=== PATIENT | female | born 1990 | race Caucasian/White ===

== ENCOUNTER 2016-10-06 21:58 | Outpatient (CLI) | payer MEDICAID ==
[~2016-10-06] VITALS: Ht 156.2 cm; Wt 64.1 kg
[2016-10-06 23:15] VITALS: BP 98/62; PULSE 93; RESP 20
[2016-10-06] MEDS ORDERED: PRENAT PO (23:19)
--- NOTE | 2016-10-06 23:25 | QN ---
Documentation Comment Laborist ER panel pt 26 y.o. G1 with an IUP at 23w 1d c/o left back pain x 3 days. She ranks it 7/10 on a pain scale. Denies hardening of the belly. No bleeding or leaking of fluid. No dysuria. No fever, chills, nausea, vomiting. Pt denies lifting anything heavy or any other activity that would aggravate a back. PMHx: none. PSHx:none. NKDA. BP= 98/62. T= 98.9. No CVAT tenderness either side but lower down on the left side the strap muscle next to the spine is distinctly harder and a source of pain for the pt compared to the right side. NST: baseline 140 bpm with accels to 150 bpm (appropriate for 23 weeks). Some UC 's noted, mild. A: IUP 23w 1d with left back muscle spasm. Plan: P.O. hydration. [place] 5 mg x 1. U/A. Hot pack to back. Cervical length. If all OK, and the patient feels better, may d/c home. REJI HERNÁNDEZ MD Oct 06, 2016 23:25
[2016-10-06] MEDS ORDERED: HYDROCODONE/APAP (5/325) TAB PO ONE (23:30)
--- NOTE | 2016-10-07 00:16 | RADRPT ---
PROCEDURE: US OB cervical length. CLINICAL INDICATION: labor TECHNIQUE: Multiple sonographic images of the pelvis were obtained. The images were reviewed on a PACS workstation. COMPARISON: No pertinent prior examinations were submitted for comparison. FINDINGS: The cervix is closed with a length of 3.6 cm. There is a single live intrauterine gestation. Cardiac activity is present with 137 beats per minut e. There is a vertex presentation. This examination was not performed for anatomy. The placenta is posterior, grade 1 in appearance. There is no evidence for an abruption or placenta previa. IMPRESSION: Cervical length 3.6 cm. RPTAT: HIKT .Navin Brown MD, MD Date Time Electronically viewed and signed by .Navin Brown MD, MD on 10/07/2016 00:16 .T/
[2016-10-07 01:13] LABS: ADD UMIC YES; URINE BILIRUBIN (Dip) NEGATIVE (NEGATIVE); URINE BLOOD (Dip) 2+ (NEGATIVE); URINE COLOR LT. YELLOW (YELLOW); URINE GLUCOSE (Dip) NEGATIVE (NEGATIVE); URINE KETONES (Dip) NEGATIVE (NEGATIVE); URINE LEUKOCYTE ESTERASE (Dip) 1+ (NEGATIVE); URINE NITRITE (Dip) NEGATIVE (NEGATIVE); URINE TOTAL PROTEIN (Dip) NEGATIVE (NEGATIVE); URINE UROBILINOGEN (Dip) 0.2 E.U./dL (0.1-1.0)
[2016-10-07 01:34] LABS: BACTERIA,URINE MANY; SQUAMOUS EPITHELIAL CELL,UR MANY
--- NOTE | 2016-10-07 02:54 | TRIAGE ---
OB Triage Datetime Report Generated by CPN: 10/07/2016 02:54 Datetime: 10/06/2016 23:10 Stage of : OB Triage Monitor Mode: External Duration (sec)2399: 20-40sec Quality: Mild Pattern: Normal: <= 5 Contractions in 10 Minutes Resting Tone [place]: Relaxed Heart Rate FHR Baseline Rate: 140 Monitor Mode: External US FHR Baseline Changes: No Baseline Change Variability: Moderate 6-25 bpm Accelerations: 10X10 Pain Assessment Pain Scale: 7 Pain Presence: Constant Pain Type: Stabbing; Ache Pain Location: Back Pain Assessment Comments: left side Datetime: 10/06/2016 22:30 Stage of : OB Triage Heart Rate FHR Baseline Rate: 140 Monitor Mode: External US Variability: Moderate 6-25 bpm Accelerations: 10X10 Datetime: 10/06/2016 22:17 Time of Arrival: 10/06/2016 21:52 EGA: 23.1 Arrived By: Wheelchair Arrived From: Home Chief Complaint: w/ c/o lt side pain x 2 hrs. Denies hx problems this Movement: Present Contractions: Denies/Absent Rupture of Membranes: Denies Vaginal Bleeding: None Vaginal Discharge: Denies Recent Sexual Intercouse: Denies Abdominal Trauma: Not Applicable Patient Complaints: Back Pain Time Provider Notified: 10/06/2016 22:30 Provider Notified: Dr Mathis Initial Plan: EFM, UA,CVL, PO HYDRATION Datetime: 10/06/2016 22:10 Vaginal Exam Membrane Status: Intact Datetime: 10/06/2016 22:09 Stage of : OB Triage Maternal Assessment Level of Consciousness: Fully Conscious Headache: Denies Blurred Vision: No Nausea/Vomiting: Denies RUQ Epigastric Pain: Denies Facial Edema: None Labor Evaluation Frequency: placed Monitor Mode: External Monitor Mode: External US Comments: FHT 150 Pain Assessment Pain Scale: 7 Pain Presence: Constant Pain Type: Stabbing; Ache Pain Location: Back
== END 2016-10-07 02:38 | disposition home or self-care (01) ==
LOC: OBT 21:58 → L-D 22:01 → OBT 10-07 02:38
PROVIDERS: ATTEND Obstetrics & Gynecology
DX: O99.89 Other specified diseases and conditions complicating pregnancy, childbirth and the puerperium (principal); M62.830 Muscle spasm of back; O60.02 Preterm labor without delivery, second trimester; Z3A.23 23 weeks gestation of pregnancy
CPT/HCPCS: 76817; 81001; 81003; Z7500; Z7610; G0463

== ENCOUNTER 2016-12-31 09:47 | Outpatient (CLI) | payer MEDICAID ==
[~2016-12-31 09:47] MED LIST: PRENAT PO
--- NOTE | 2016-12-31 10:51 | RADRPT ---
PROCEDURE: US OB. CLINICAL INDICATION: Decrease movement TECHNIQUE: Pelvic ultrasound performed for biophysical profile. COMPARISON: 12/28/2016 ultrasound and 10/06/2016 ultrasound FINDINGS: Single intrauterine gestation present with heart rate at 08/1933 beats per minute. Presentation is cephalic. Placenta is left lateral, grade 1-2. Biophysical profile score is 8/8 (breathing=2, move ment=2, tone =2, fluid volume=2). Amniotic fluid volume is within normal limits, with WAI = 8.1 cm. IMPRESSION: Live intrauterine gestation in cephalic presentation. Biophysical profile score 8/8. WAI of 8.1 cm. .Lay Mendez MD, Date Time Electronically viewed and signed by .Lay Mendez MD, on 12/31/2016 10:50 .M/
[2016-12-31] MEDS: LACTATED RINGER'S 1,000 ML IV SCH ×2 (12:28→17:35)
[2016-12-31] MEDS ORDERED: TERBUTALINE 1 MG/ML INJ SC ONE ×2 (12:30→15:30)
[2016-12-31] MEDS ORDERED: BETAMET NA PHOS/AC(6 MG/ML) 5ML INJ IM ONE (17:30)
--- NOTE | 2016-12-31 17:52 | QN ---
Documentation Comment 26 y/o female P0 at 34 + weeks here C/O decreased FM since 4 hours prior to admission PMH and PSh asa well as PNC are unremarkable On EFM U/C een Q 4-5 minutes : Cervix is closed. After 2 X SQ injection of Terbutaline U/Cs subsided. Patient was started on PO Nifedipine: Will continue until 37 weeks Steroids given: will repeat the dose next day NST is reactive and BPP is 8/8 Placed patient on bed rest and pelvic rest and follow outpatient YOKO VALENCIA MD December 31, 2016 17:52
[2016-12-31] MEDS ORDERED: NIFEdipine 10 MG CAP PO ONE (18:00)
[2016-12-31] MEDS ORDERED: NIFE10CA19 PO (19:48)
--- NOTE | 2016-12-31 20:07 | TRIAGE ---
OB Triage Datetime Report Generated by CPN: 12/31/2016 20:06 Datetime: 12/31/2016 18:30 Stage of : OB Triage Labor Evaluation Frequency: 0 Monitor Mode: External Resting Tone [place]: Relaxed Heart Rate FHR Baseline Rate: 135 Monitor Mode: External US Variability: Moderate 6-25 bpm Accelerations: 15X15 Decelerations: None Category: Category I Pain Assessment Pain Scale: 0 Pain Presence: None/Denies Pain Type: N/A Pain Goal: 3 Pain Relief Measures: Comfort Measures Datetime: 12/31/2016 17:42 Stage of : Antepartum Datetime: 12/31/2016 16:08 Labor Evaluation Frequency: 3-8 Monitor Mode: External Duration (sec)2399: 30-60 Quality: Mild Pattern: Normal: <= 5 Contractions in 10 Minutes Resting Tone [place]: Relaxed Contraction Comments: DENIES FEELING Heart Rate FHR Baseline Rate: 135 Monitor Mode: External US Variability: Moderate 6-25 bpm Accelerations: 10X10 Decelerations: None Category: Category I Pain Assessment Pain Scale: 0 Pain Presence: None/Denies Pain Type: N/A Pain Goal: 3 Pain Relief Measures: Comfort Measures Datetime: 12/31/2016 15:20 Stage of : OB Triage Datetime: 12/31/2016 15:08 Labor Evaluation Frequency: 3-5 Monitor Mode: External Duration (sec)2399: 20-30 Pattern: Normal: <= 5 Contractions in 10 Minutes Resting Tone [place]: Relaxed Heart Rate FHR Baseline Rate: 135 Monitor Mode: External US Variability: Moderate 6-25 bpm Accelerations: None Decelerations: None Category: Category II Pain Assessment Pain Scale: 0 Pain Presence: None/Denies Pain Type: N/A Pain Goal: 3 Pain Relief Measures: Comfort Measures Datetime: 12/31/2016 13:15 Labor Evaluation Frequency: 0 Monitor Mode: External Resting Tone [place]: Relaxed Heart Rate FHR Baseline Rate: 135 Monitor Mode: External US Variability: Moderate 6-25 bpm Decelerations: None Category: Category II Pain Assessment Pain Scale: 0 Pain Presence: None/Denies Pain Type: N/A Pain Goal: 3 Pain Relief Measures: Comfort Measures Datetime: 12/31/2016 12:05 Labor Evaluation Frequency: 7-8 Monitor Mode: External Duration (sec)2399: 40-60 Quality: Mild Resting Tone [place]: Relaxed Heart Rate FHR Baseline Rate: 125 Monitor Mode: External US Variability: Moderate 6-25 bpm Accelerations: 10X10 Decelerations: None Category: Category I Pain Assessment Pain Scale: 2 Pain Presence: Intermittent Pain Type: Cramping Pain Goal: 3 Pain Relief Measures: Comfort Measures Datetime: 12/31/2016 12:04 Stage of : OB Triage Datetime: 12/31/2016 11:37 Vaginal Exam Dilatation (cms): 0.0 Exam By: S JONELLE Vaginal Bleeding: None Cervix, Consistency: Soft Cervix, Position: Posterior Presentation 'A': Cephalic Datetime: 12/31/2016 11:07 Labor Evaluation Frequency: OCCAS Monitor Mode: External Duration (sec)2399: 450-70 Resting Tone [place]: Relaxed Heart Rate FHR Baseline Rate: 135 Monitor Mode: External US Variability: Moderate 6-25 bpm Accelerations: 10X10 Decelerations: None Category: Category I Pain Assessment Pain Scale: 0 Pain Presence: None/Denies Pain Type: N/A Pain Goal: 3 Pain Relief Measures: Comfort Measures Datetime: 12/31/2016 10:21 Stage of : OB Triage Datetime: 12/31/2016 10:03 Stage of : OB Triage Assessment Type: Triage Maternal Assessment Level of Consciousness: Fully Conscious DTR's/Clonus: DTRs 2+; No Clonus Headache: Denies Blurred Vision: No Respiratory Effort: Unlabored; Regular Rhythm; Equal Expansion Breath Sounds, Left: Clear and Equal Breath Sounds, Right: Clear and Equal Nausea/Vomiting: Denies RUQ Epigastric Pain: Denies Facial Edema: None Temperature Route: Axillary Fall Risk Assessment History of Falling: (0) No Secondary Diagnosis: (0) No Ambulatory Aid: (0) Bedrest/Nurse Assist IV Therapy: (0) No Gait: (0) Normal/Bedrest/Immobile Mental Status: (0) Oriented to Own Ability Fall Score: 0 Fall Risk Score Definition: No Risk: No action required Labor Evaluation Frequency: 0 Monitor Mode: External Resting Tone [place]: Relaxed Heart Rate FHR Baseline Rate: 125 Monitor Mode: External US Variability: Moderate 6-25 bpm Accelerations: 10X10 Decelerations: None Category: Category I Pain Assessment Pain Scale: 0 Pain Presence: None/Denies Pain Type: N/A Datetime: 12/31/2016 10:02 Time of Arrival: 12/31/2016 09:35 EGA: 34.3 Arrived By: Ambulatory Arrived From: Home Chief Complaint: C/O DFM X 4 HOURS, DENIES BLEEDING, LEAKING OR UC'S Movement: Decreased Contractions: Denies/Absent Rupture of Membranes: Denies Vaginal Bleeding: None Vaginal Discharge: Denies Recent Sexual Intercouse: Denies Abdominal Trauma: Not Applicable Patient Complaints: None Time Provider Notified: 12/31/2016 10:21 Provider Notified: CHANA Initial Plan: MONITOR, BPP/WAI, TERB, IV HYDRATION Datetime: 10/07/2016 02:30 Monitor Mode: External Quality: Mild Pattern: Normal: <= 5 Contractions in 10 Minutes Resting Tone [place]: Relaxed Monitor Mode: External US Pain Assessment Pain Scale: 3 Pain Presence: Constant Pain Type: Stabbing; Ache Pain Location: Back Pain Assessment Comments: Pt states she feels mmuch better and desires to go homeuch btetter Datetime: 10/07/2016 01:25 Stage of : OB Triage Pain Assessment Pain Scale: 3 Pain Presence: Constant Pain Type: Stabbing; Ache Pain Location: Abdomen Pain Assessment Comments: Pt states she feels much better Datetime: 10/07/2016 00:30 Pain Assessment Pain Scale: 6 Pain Presence: Constant Pain Type: Stabbing; Ache Pain Location: Back Pain Assessment Comments: Pt resting Datetime: 10/06/2016 23:26 Monitor Mode: External Quality: Mild Pattern: Normal: <= 5 Contractions in 10 Minutes Resting Tone [place]: Relaxed Heart Rate FHR Baseline Rate: 140 Monitor Mode: External US FHR Baseline Changes: No Baseline Change Decelerations: None Pain Assessment Pain Scale: 7 Pain Presence: Constant Pain Type: Stabbing; Ache Pain Location: Back Datetime: 10/06/2016 22:17 EGA: 22.1
== END 2016-12-31 19:58 | disposition home or self-care (01) ==
LOC: OBT 09:47 → L-D 09:47 → OBT 19:58
PROVIDERS: ATTEND Obstetrics & Gynecology
DX: O36.8130 Decreased fetal movements, third trimester, not applicable or unspecified (principal); Z3A.34 34 weeks gestation of pregnancy
CPT/HCPCS: 36415; 76818; 96360; 96361; 96372; J0702; J3105; J7120; Z7500; Z7610; G0463

== ENCOUNTER 2017-01-01 18:44 | Outpatient (CLI) | payer MEDICAID ==
[~2017-01-01] VITALS: Ht 154.9 cm; Wt 68.6 kg
[~2017-01-01 18:44] MED LIST changes: +NIFE10CA19 PO
[2017-01-01 18:50] VITALS: BP 110/63; PULSE 71; RESP 16; Ht 154.9 cm; Wt 68.6 kg
[2017-01-01] MEDS ORDERED: BETAMET NA PHOS/AC(6 MG/ML) 5ML INJ IM ONE (19:00)
--- NOTE | 2017-01-01 19:39 | TRIAGE ---
OB Triage Datetime Report Generated by CPN: 01/01/2017 19:38 Datetime: 01/01/2017 19:31 Stage of : OB Triage Frequency: occasional Monitor Mode: External Duration (sec)2399: 60-90 Quality: Mild Pattern: Normal: <= 5 Contractions in 10 Minutes Resting Tone [place]: Relaxed FHR Baseline Rate: 140 Monitor Mode: External US Variability: Moderate 6-25 bpm Accelerations: 15X15 Decelerations: None Category: Category I Pain Scale: 0 Pain Presence: None/Denies Pain Type: N/A Pain Goal: 0 Datetime: 01/01/2017 19:14 Assessment Type: Triage Datetime: 01/01/2017 18:59 Assessment Type: Triage Level of Consciousness: Fully Conscious DTR's/Clonus: DTRs 2+; No Clonus Headache: Denies Blurred Vision: No Respiratory Effort: Unlabored; Regular Rhythm; Equal Expansion Breath Sounds, Left: Clear and Equal Breath Sounds, Right: Clear and Equal Nausea/Vomiting: Denies RUQ Epigastric Pain: Denies Facial Edema: None History of Falling: (0) No Secondary Diagnosis: (0) No Ambulatory Aid: (0) Bedrest/Nurse Assist IV Therapy: (0) No Gait: (0) Normal/Bedrest/Immobile Mental Status: (0) Oriented to Own Ability Fall Score: 0 Fall Risk Score Definition: No Risk: No action required Datetime: 01/01/2017 18:57 Time of Arrival: 01/01/2017 18:40 EGA: 34.4 Arrived By: Ambulatory Arrived From: Home Chief Complaint: Pt. came to hospital for second dose betamethason injection Movement: Present Contractions: Denies/Absent Rupture of Membranes: Denies Vaginal Discharge: Denies Recent Sexual Intercouse: Denies Abdominal Trauma: Not Applicable Patient Complaints: None Initial Plan: nst, betamathason injection Datetime: 12/31/2016 19:38 Frequency: X2 Monitor Mode: External Duration (sec)2399: 50-60 Quality: Mild Pattern: Normal: <= 5 Contractions in 10 Minutes Resting Tone [place]: Relaxed FHR Baseline Rate: 135 Monitor Mode: External US FHR Baseline Changes: No Baseline Change Variability: Moderate 6-25 bpm Accelerations: 15X15 Decelerations: None Category: Category I
--- NOTE | 2017-01-01 19:50 | QN ---
Documentation Comment Laborist Dr Jha's 26 y.o. G1 with an IUP at 34w 4d here for a 2nd dose of betamethasone. Pt was here yesterday with c/o decreased FM and was found to be yanira. The UC's abated after 2 doses of terbutaline and she was sent home on Procardia 10mg q 6 hours. She received an initial dose of steroids yesterday. The pt denies any UC' s today as well as no VB, leaking. +FM. PMHx: none. PSHx: none. NKDA. 110/63 T=98 NST: baseline 140 bpm with accels to 160 bpm. No decels. UC's q 5-15 minutes, generally farther apart than closer and not felt by pt. A: IUP at 34w 4d. False labor. PLan D/C home. F/U as scheduled in the clinic. REJI HERNÁNDEZ MD January 01, 2017 19:50
== END 2017-01-01 19:37 | disposition home or self-care (01) ==
LOC: OBT 18:44 → L-D 18:45 → OBT 19:37
PROVIDERS: ATTEND Obstetrics & Gynecology
DX: O47.03 False labor before 37 completed weeks of gestation, third trimester (principal); Z3A.34 34 weeks gestation of pregnancy
CPT/HCPCS: G0463; J0702

== ENCOUNTER 2017-01-18 14:33 | Outpatient (CLI) | payer MEDICAID ==
[~2017-01-18] VITALS: Ht 154.9 cm; Wt 72.3 kg
[2017-01-18 15:00] VITALS: BP 112/61; PULSE 80; RESP 20; Ht 154.9 cm; Wt 72.3 kg
--- NOTE | 2017-01-18 15:38 | RADRPT ---
PROCEDURE: US OB biophysical profile. CLINICAL INDICATION: decreased movements, well-being TECHNIQUE: Multiple sonographic images of the pelvis were obtained. The images were reviewed on a PACS workstation. COMPARISON: 12/31/2016 FINDINGS: There is a single viable intrauterine gestation. Cardiac activity is present with 132 beats per min [place]. There is a vertex presentation. The placenta is fundal left. There is no evidence of placental abruption. There is a normal amount of amniotic fluid with an WAI = 9.8 cm. Biophysical profile: movement 2/2 tone 2/2. breathing 2/2 WAI 2/2 Total 04/04 RPTAT: AA . IMPRESSION: Normal biophysical profile. . .Giancarlo Castano MD, Date Time Electronically viewed and signed by .Giancarlo Castano MD, MD on 01/18/2017 15:38 .S/
[2017-01-18] MEDS ORDERED: LACTATED RINGER'S 1,000 ML IV SCH (17:12)
--- NOTE | 2017-01-18 17:16 | TRIAGE ---
OB Triage Datetime Report Generated by CPN: 01/18/2017 17:16 Datetime: 01/18/2017 17:00 Labor Evaluation Frequency: IRREG Monitor Mode: External Duration (sec)2399: 50-80 Quality: Mild Pattern: Normal: <= 5 Contractions in 10 Minutes Resting Tone [place]: Relaxed Heart Rate FHR Baseline Rate: 135 Monitor Mode: External US Variability: Moderate 6-25 bpm Accelerations: 15X15 Decelerations: None Category: Category I Datetime: 01/18/2017 16:02 Labor Evaluation Frequency: 5-7 Monitor Mode: External Duration (sec)2399: 60-120 Quality: Mild Pattern: Normal: <= 5 Contractions in 10 Minutes Resting Tone [place]: Relaxed Heart Rate FHR Baseline Rate: 140 Monitor Mode: External US Variability: Minimal - Undetectable to <=5 bpm Accelerations: 15X15 Decelerations: None Category: Category I Datetime: 01/18/2017 15:19 Labor Evaluation Frequency: 4-7 Monitor Mode: External Duration (sec)2399: 60-120 Quality: Mild Pattern: Normal: <= 5 Contractions in 10 Minutes Resting Tone [place]: Relaxed Heart Rate FHR Baseline Rate: 140 Monitor Mode: External US Variability: Moderate 6-25 bpm Accelerations: 15X15 Decelerations: Variable Category: Category II Comments: PERIODS OF MINIMAL VARIABILITY Datetime: 01/18/2017 15:10 Vaginal Exam Dilatation (cms): 0.0 Effacement (%): 50 Station: -2 Exam By: OGBODU RN Cervix, Consistency: Soft Datetime: 01/18/2017 14:54 Maternal Assessment Level of Consciousness: Fully Conscious DTR's/Clonus: DTRs 2+; No Clonus Headache: Denies Blurred Vision: No Respiratory Effort: Unlabored; Regular Rhythm; Equal Expansion Breath Sounds, Left: Clear and Equal Breath Sounds, Right: Clear and Equal Nausea/Vomiting: Denies RUQ Epigastric Pain: Denies Facial Edema: None Temperature Route: Axillary Fall Risk Assessment History of Falling: (0) No Secondary Diagnosis: (0) No Ambulatory Aid: (0) Bedrest/Nurse Assist IV Therapy: (0) No Gait: (0) Normal/Bedrest/Immobile Mental Status: (0) Oriented to Own Ability Fall Score: 0 Fall Risk Score Definition: No Risk: No action required Datetime: 01/18/2017 14:53 Time of Arrival: 01/18/2017 14:30 EGA: 37.0 Arrived By: Ambulatory Arrived From: Dr. Martin Chief Complaint: NST /WAI CAME IN WITH ORDERS Movement: Present Contractions: Denies/Absent Rupture of Membranes: Denies Vaginal Bleeding: None Vaginal Discharge: Denies Recent Sexual Intercouse: Denies Abdominal Trauma: Not Applicable Patient Complaints: Contractions Time Provider Notified: 01/18/2017 15:50 Provider Notified: DR. ZAYAS Initial Plan: NST AND BPP Datetime: 01/01/2017 18:59 Fall Score: 0 Fall Risk Score Definition: No Risk: No action required Datetime: 01/01/2017 18:57 EGA: 34.4 Datetime: 12/31/2016 10:03 Fall Score: 0 Fall Risk Score Definition: No Risk: No action required Datetime: 12/31/2016 10:02 EGA: 34.3 Datetime: 10/06/2016 22:17 EGA: 22.1
[2017-01-18 17:21] LABS: ADD SCAN DIFF NO
[2017-01-18 17:22] LABS: ADD UMIC NO; BASOPHILS % 0.5 % (0.0-2.0); EOSINOPHILS % 0.6 % (0.0-7.0); HEMATOCRIT 33.8 % (37.0-47.0); HEMOGLOBIN 11.2 g/dl (12.0-16.0); LYMPHOCYTES # 1.7 10^3/ul (0.8-2.9); LYMPHOCYTES % 27.4 % (15.0-51.0); MEAN CORPUSCULAR HEMOGLOBIN 29.6 pg (29.0-33.0); MEAN CORPUSCULAR HGB CONC 33.1 g/dl (32.0-37.0); MEAN CORPUSCULAR VOLUME 89.4 fl (82.0-101.0); MEAN PLATELET VOLUME 11.2 fl (7.4-10.4); MONOCYTE # 0.5 10^3/ul (0.3-0.9); MONOCYTES % 7.4 % (0.0-11.0); NEUTROPHILS % 63.6 % (39.0-77.0); PLATELET COUNT 178 10^3/UL (140-415); RED BLOOD COUNT 3.78 10^6/ul (4.20-5.40); RED CELL DISTRIBUTION WIDTH 14.6 % (11.5-14.5); URINE BILIRUBIN (Dip) NEGATIVE (NEGATIVE); URINE BLOOD (Dip) NEGATIVE (NEGATIVE); URINE COLOR LT. YELLOW (YELLOW); URINE GLUCOSE (Dip) NEGATIVE (NEGATIVE); URINE KETONES (Dip) NEGATIVE (NEGATIVE); URINE LEUKOCYTE ESTERASE (Dip) NEGATIVE (NEGATIVE); URINE NITRITE (Dip) NEGATIVE (NEGATIVE); URINE TOTAL PROTEIN (Dip) NEGATIVE (NEGATIVE); URINE UROBILINOGEN (Dip) 0.2 E.U./dL (0.1-1.0); WHITE BLOOD COUNT 6.3 10^3/ul (4.8-10.8)
[2017-01-18 17:36] LABS: ALBUMIN 3.2 g/dl (3.3-4.9); ALBUMIN/GLOBULIN RATIO 0.86; CREATININE 0.64 mg/dl (0.44-1.00); POTASSIUM 4.1 mmol/L (3.5-5.1); TOTAL PROTEIN 6.9 g/dl (6.1-8.1)
--- NOTE | 2017-01-18 18:36 | QN ---
Documentation Comment 26 y/o female P0 at 37 weeks here for antepartum testing because of low GIANNA-A NST R BPP 04/04 P home F/U X 3 days YOKO VALENCIA MD January 18, 2017 18:36
--- NOTE | 2017-01-18 19:10 | TRIAGE ---
OB Triage Datetime Report Generated by CPN: 01/18/2017 19:10 Datetime: 01/18/2017 18:45 Frequency: IRREG Monitor Mode: External Duration (sec)2399: 50-80 Quality: Mild Pattern: Normal: <= 5 Contractions in 10 Minutes Resting Tone [place]: Relaxed FHR Baseline Rate: 135 Monitor Mode: External US Variability: Moderate 6-25 bpm Accelerations: 15X15 Decelerations: None Category: Category I
== END 2017-01-18 18:50 | disposition home or self-care (01) ==
LOC: L-D 14:33 → OBT 14:33 → L-D 16:22 → OBT 16:22 → L-D 16:22 → UNDOADMIN 16:22 → OBT 18:50
PROVIDERS: ATTEND Obstetrics & Gynecology
DX: O28.1 Abnormal biochemical finding on antenatal screening of mother (principal); Z3A.37 37 weeks gestation of pregnancy
CPT/HCPCS: 76818; 80053; 81003; 85025; 86850; 86900; 86901; J7120; Z7500; G0463

== ENCOUNTER 2017-01-21 04:55 | Inpatient (IN) | payer MEDICAID ==
[~2017-01-21] VITALS: Ht 156.2 cm; Wt 61.5 kg
[~2017-01-21 04:55] MED LIST changes: -NIFE10CA19 PO
[2017-01-21 05:16] LABS: URINE BLOOD (Dip) POC Negative (NEGATIVE)
[2017-01-21 06:16] VITALS: Ht 156.2 cm; Wt 61.5 kg
[2017-01-21 06:17] VITALS: BP 124/86; PULSE 67; RESP 18
[2017-01-21] MEDS ORDERED: CALC-134 PO (06:20)
[2017-01-21] MEDS ORDERED: FERR134T PO (06:20)
[2017-01-21] MEDS ORDERED: AMPICILLIN 2 GM/NS (PMX) 100 ML IV ONE (07:00)
[2017-01-21] MEDS ORDERED: BUTORPHANOL 2 MG INJ IV PRN (07:00)
[2017-01-21] MEDS ORDERED: OXYTOCIN 30 UNITS/LR 500 ML IV SCH ×2 (07:00)
[2017-01-21] MEDS ORDERED: LIDOCAINE 1% (MPF) 30 ML INJ INJ PRN (07:00)
[2017-01-21] MEDS ORDERED: IBUPROFEN 600 MG TAB PO PRN (07:00)
[2017-01-21] MEDS ORDERED: MISOPROSTOL 200 MCG TAB PR PRN ×2 (07:00→22:30)
[2017-01-21] MEDS ORDERED: OXYTOCIN 30 UNITS/LR 500 ML IV PRN ×2 (07:00→22:30)
[2017-01-21] MEDS ORDERED: ACETAMINOPHEN/CODEINE #3 TAB PO PRN (07:00)
[2017-01-21] MEDS ORDERED: CARBOPROST 250 MCG INJ IM PRN ×2 (07:00→22:30)
[2017-01-21] MEDS ORDERED: METHYLERGONOVINE 0.2 MG INJ IM PRN ×2 (07:00→22:30)
[2017-01-21] MEDS: LACTATED RINGER'S 1,000 ML IV SCH ×2 (07:28→14:51)
[2017-01-21 07:41] LABS: ADD SCAN DIFF NO
[2017-01-21] MEDS ORDERED: LACTATED RINGER'S 1,000 ML IV PRN (08:00)
[2017-01-21 08:03] LABS: INR 0.82; PROTIME 11.3 Sec (12.2-14.2); PT RATIO 0.9
[2017-01-21 08:04] LABS: PARTIAL THROMBOPLASTIN TIME 28.6 Sec (25.0-35.0)
[2017-01-21 08:21] LABS: BASOPHILS % 0.3 % (0.0-2.0); EOSINOPHILS # 0.1 10^3/ul (0.0-0.5); EOSINOPHILS % 0.8 % (0.0-7.0); HEMATOCRIT 34.7 % (37.0-47.0); HEMOGLOBIN 11.3 g/dl (12.0-16.0); LYMPHOCYTES # 2.6 10^3/ul (0.8-2.9); LYMPHOCYTES % 36.1 % (15.0-51.0); MEAN CORPUSCULAR HEMOGLOBIN 28.8 pg (29.0-33.0); MEAN CORPUSCULAR HGB CONC 32.6 g/dl (32.0-37.0); MEAN CORPUSCULAR VOLUME 88.5 fl (82.0-101.0); MEAN PLATELET VOLUME 11.6 fl (7.4-10.4); MONOCYTE # 0.3 10^3/ul (0.3-0.9); MONOCYTES % 4.3 % (0.0-11.0); NEUTROPHIL # 4.2 10^3/ul (1.6-7.5); NEUTROPHILS % 58.2 % (39.0-77.0); PLATELET COUNT 184 10^3/UL (140-415); RED BLOOD COUNT 3.92 10^6/ul (4.20-5.40); RED CELL DISTRIBUTION WIDTH 14.3 % (11.5-14.5); WHITE BLOOD COUNT 7.2 10^3/ul (4.8-10.8)
[2017-01-21] MEDS ORDERED: LACTATED RINGER'S 1,000 ML IV ONE (08:51)
[2017-01-21] MEDS ORDERED: ONDANSETRON 4 MG INJ ONE (08:52)
[2017-01-21] MEDS ORDERED: CITRIC ACID/SODIUM CITRATE 15 ML CUP ONE ×2 (08:52→08:54)
[2017-01-21] MEDS ORDERED: FENTAnyl 2MCG/ML-ROPIV 0.2% 100 ML ONE (08:56)
[2017-01-21] MEDS ORDERED: CITRIC ACID/NA CITRATE 30 ML CUP PO ONE (09:00)
[2017-01-21] MEDS ORDERED: NALOXONE (0.4 MG/ML) INJ IV PRN (09:00)
[2017-01-21] MEDS ORDERED: morphine 2 MG INJ IV PRN (09:00)
[2017-01-21] MEDS ORDERED: PROCHLORPERAZINE 10 MG INJ IV PRN (09:00)
[2017-01-21] MEDS ORDERED: ONDANSETRON 4 MG INJ IV PRN (09:00)
[2017-01-21] MEDS ORDERED: ONDANSETRON 4 MG INJ IV ONE (09:00)
[2017-01-21] MEDS ORDERED: morphine 4 MG/ML VIAL IV PRN (09:00)
[2017-01-21] MEDS ORDERED: DIPHENHYDRAMINE 50 MG INJ IV PRN (09:00)
[2017-01-21] MEDS: AMPICILLIN 1 GM/NS (PMX) 50 ML IV SCH ×3 (11:20→19:21)
[2017-01-21] MEDS ORDERED: KETOROLAC 30 MG INJ IV PRN (12:00)
[2017-01-21] MEDS: FENTAnyl 2MCG/ML-ROPIV 0.2% 100 ML BAG EPI SCH ×2 (14:37→17:29)
[2017-01-21 19:52] LABS: ALBUMIN 2.9 g/dl (3.3-4.9); POTASSIUM 3.8 mmol/L (3.5-5.1)
[2017-01-21 19:54] LABS: BILIRUBIN,INDIRECT 0.2 mg/dl (0-1.1); BILIRUBIN,TOTAL 0.2 mg/dl (0.2-1.3); CREATININE 0.68 mg/dl (0.44-1.00)
[2017-01-21 19:55] LABS: ALBUMIN/GLOBULIN RATIO 0.78; TOTAL PROTEIN 6.6 g/dl (6.1-8.1); URIC ACID 6.7 mg/dl (3.1-7.9)
[2017-01-21 19:56] LABS: CALCIUM 8.5 mg/dl (8.4-10.2)
[2017-01-21] MEDS ORDERED: LACTATED RINGER'S 1,000 ML IV* SCH (22:11)
--- NOTE | 2017-01-21 22:23 | LDN ---
Date/Time of Note Date/Time of Note DATE: 01/21/17 TIME: 22:18 Delivery Summary of a viable baby boy weighing 2805 grams or 6# 3oz, 18.75" long, and with Apgars of 9/9. Weeks of Gestation 37w 3d Placenta Delivered: Spontaneously Meconium: none Perineal laceration: 1 Laceration repair: 1st degree right lateral perineal laceration repaired with 3-0 chromic Anesthesia type: Epidural Estimated blood loss: 300 Sponge & Needle done & correct: Yes All needle counts correct: Yes Any foreign bodies felt in the: No (vagina) Problems: Infant Delivery Information Sex Sex: male Apgars 1 Minute: 9 5 Minute: 9 Suctioning Nose & mouth suctioned at [place]: No Delee suction performed: No Umbilical Cord Umbilical cord with: 3 Vessels Cord presentations: no nuchal cord Cord Blood was obtained: Yes Mother & Baby Disposition Disposition Mom & Baby to Maternity; Good: Yes Baby to NICU: No REJI HERNÁNDEZ MD January 21, 2017 22:23
--- NOTE | 2017-01-21 22:28 | HP ---
Date/Time of Note Date/Time of Note DATE: 01/21/17 TIME: 22:23 OB - History Hx of Present Free Text/Dictation 26 y.o. G1 with an IUP at 37w 3d in labor. Estimated Due Date: Feb 08, 2017 : 1 Para: 0 Care: Good Care Ultrasounds: Normal mid trimester US Obstetrical Complications: None Medical Complications: None Past Family/Social History * Past Medical, Surgical, Family and Obstetric Histories reviewed from chart. Blood Type: Unknown RPR/VDRL: Negative GBS Status: Unknown HBsAG: Negative OB Admission Exam Vital Signs Vital Signs Vital Signs Date Time Temp Pulse Resp B/P Pulse Ox O2 Delivery O2 Flow Rate FiO2 01/21/17 06:17 98.4 67 18 124/86 Room Air Physical Exam Heart: Rhythm Normal Lungs: Clear Abdomen: WNL Extremities: Normal Reflexes: Normal Cervical Dilatation: 4cm Effacement: Other (90%) Station: -2 Membranes: Intact Amniotic Fluid: Clear Heart Rate: 140's Accelerations: Accelerations Present Decelerations: No Decelerations Varibility: Moderate Contractions on Admission: < 5 Minutes Apart Last 72 hours Lab Results CBC & BMP 01/21/17 07:20 01/21/17 19:24 Liver Function Test 01/21/17 19:24 Alanine Aminotransferase (ALT/SGPT) 37 Albumin 2.9 L Alkaline Phosphatase 253 H Aspartate Amino Transf (AST/SGOT) 30 Direct Bilirubin 0.00 Total Protein 6.6 OB Assessment/Plan Reason for admission: active labor Plan: Expectant Management REJI HERNÁNDEZ MD January 21, 2017 22:28
[2017-01-21] MEDS ORDERED: BENZOCAINE 20% 56 ML SPRAY TOP PRN (22:30)
[2017-01-21] MEDS ORDERED: LANOLIN 7 GM TUBE TOP PRN (22:30)
[2017-01-21] MEDS ORDERED: OXYCODONE/ASPIRIN (4.88/325) TAB PO PRN (22:30)
[2017-01-21 23:30] VITALS: BP 127/79; PULSE 73; RESP 17
[2017-01-21] MEDS: IBUPROFEN 600 MG TAB PO SCH (23:43)
[2017-01-22 03:45] VITALS: BP 89/52; PULSE 78; RESP 20
[2017-01-22] MEDS: IBUPROFEN 600 MG TAB PO SCH ×4 (05:37→23:28)
[2017-01-22 08:30] VITALS: BP 103/63; PULSE 86; RESP 18
--- NOTE | 2017-01-22 10:31 | QN ---
Documentation Comment ppd1 pt doing well vss exam wnl a/p ppd1 continue care QI ROMO MD January 22, 2017 10:31
[2017-01-22 16:00] VITALS: BP 107/55; PULSE 87; RESP 16
[2017-01-22 20:15] VITALS: BP 124/69; PULSE 95; RESP 18
[2017-01-23 04:10] VITALS: BP 117/76; PULSE 78; RESP 18
[2017-01-23] MEDS: IBUPROFEN 600 MG TAB PO SCH ×2 (05:42→12:44)
[2017-01-23 07:19] LABS: ADD SCAN DIFF NO
[2017-01-23 07:29] LABS: BASOPHILS % 0.1 % (0.0-2.0); EOSINOPHILS # 0.2 10^3/ul (0.0-0.5); EOSINOPHILS % 1.6 % (0.0-7.0); HEMATOCRIT 26.4 % (37.0-47.0); HEMOGLOBIN 8.5 g/dl (12.0-16.0); LYMPHOCYTES # 2.8 10^3/ul (0.8-2.9); LYMPHOCYTES % 26.3 % (15.0-51.0); MEAN CORPUSCULAR HGB CONC 32.2 g/dl (32.0-37.0); MEAN CORPUSCULAR VOLUME 90.1 fl (82.0-101.0); MEAN PLATELET VOLUME 11.1 fl (7.4-10.4); MONOCYTE # 0.4 10^3/ul (0.3-0.9); MONOCYTES % 3.3 % (0.0-11.0); NEUTROPHIL # 7.2 10^3/ul (1.6-7.5); NEUTROPHILS % 68.3 % (39.0-77.0); PLATELET COUNT 162 10^3/UL (140-415); RED BLOOD COUNT 2.93 10^6/ul (4.20-5.40); RED CELL DISTRIBUTION WIDTH 14.7 % (11.5-14.5); WHITE BLOOD COUNT 10.6 10^3/ul (4.8-10.8)
[2017-01-23 08:00] VITALS: BP 107/64; PULSE 67; RESP 18
[2017-01-23] MEDS ORDERED: DIPHTH/TET/ACEL PERTUSS (ADULT) 0.5 ML VIAL IM* ONE (09:00)
[2017-01-23] MEDS ORDERED: IBUP-1542 PO (13:50)
--- NOTE | 2017-01-23 13:53 | DS ---
Date/Time of Note Date/Time of Note DATE: 01/23/17 TIME: 13:51 Obstetrical Discharge Record Final Diagnosis Final Diagnosis: Term delivered Vaginal Delivery Obstetrical Delivery: Spontaneous Condition on Discharge Physical Assessment Voiding: Yes Bowel Movement: Yes Breast: Soft, non-tender Fundus: Firm Calf Tenderness: No Patient Condition: Good KATHRIN MCKINNON MD January 23, 2017 13:53
== END 2017-01-23 14:45 | disposition home or self-care (01) | DRG 775 ==
LOC: OBT 04:55 → L-D 04:55 → OBT 06:49 → L-D 06:50 → PP1 23:22
PROVIDERS: ADMIT Obstetrics & Gynecology; ATTEND Obstetrics & Gynecology
PROC: 10E0XZZ Delivery of Products of Conception, External Approach (ICD-10-PCS; principal; 2017-01-21)
PROC: 0HQ9XZZ Repair Perineum Skin, External Approach (ICD-10-PCS; 2017-01-21)
PROC: 3E0234Z Introduction of Serum, Toxoid and Vaccine into Muscle, Percutaneous Approach (ICD-10-PCS; 2017-01-23)
DX: O70.0 First degree perineal laceration during delivery (principal); Z23 Encounter for immunization; Z3A.37 37 weeks gestation of pregnancy; Z37.0 Single live birth
CPT/HCPCS: 62319; 80053; 81003; 84560; 85025; 85610; 85730; 86592; 87340; 90715; G0463; J0290; J1200; J2405; J2590; J3010; J7120